=== PATIENT | male | born 1995 | race African-American/Black ===

== ENCOUNTER 2016-02-19 15:31 | Emergency (ER) | payer SELFPAY ==
[2016-02-19 16:20] VITALS: BP 139/82; PULSE 82; TEMP 98.6; BMI 25.1
== END 2016-02-19 17:27 | disposition left against medical advice (07) ==
LOC: EDMC 15:31
DX: L02.01 Cutaneous abscess of face (principal); Z53.21 Procedure and treatment not carried out due to patient leaving prior to being seen by health care provider
CPT/HCPCS: 99281; 99282